=== PATIENT | female | born 1990 | race Native Hawaiian/Other Pacific Islander ===

== ENCOUNTER 2016-12-11 01:11 | Emergency (ER) | payer BC ==
[2016-12-11 01:45] VITALS: BP 108/75; PULSE 70; RESP 18; TEMP 98.2; O2SAT 100
[2016-12-11 02:00] LABS: RBC URINE 755 /hpf (0-3); URINE BILIRUBIN NEGATIVE (NEGATIVE); URINE BLOOD 3+ (NEGATIVE); URINE COLOR Yellow (YELLOW); URINE GLUCOSE (UA) NORMAL (Normal); URINE KETONE TRACE mg/dL (NEGATIVE); URINE LEUKOCYTE ESTERASE 1+ Leu/uL (Negative); URINE PROTEIN NEGATIVE (NEGATIVE); URINE UROBILINOGEN NORMAL mg/dL (0.2-1.0); WBC URINE 13 /hpf (0-5)
--- NOTE | 2016-12-11 02:04 | C.PDOC ---
History Of Present Illness 26 year old patient presents to the ED complaining of abdominal and back pain since 7:30 pm today. Patient states the pain is associated with her menstrual cycle that started 12/10/16. She typically gets cramps with her menses. She took an pain killer form [employer] with no relief. Patient states the pain is exacerbated by bowel movements. Patient currently denies fever, nausea, vomiting , dysuria, hematuria, incontinence, numbness or weakness. Time Seen by Provider: 12/11/16 01:37 Chief Complaint (Nursing): Abdominal Pain History Per: Patient History/Exam Limitations: no limitations Onset/Duration Of Symptoms: Hrs (7:30 pm today) Current Symptoms Are (Timing): Still Present Context: Other Severity: Severe Pain Scale Rating Of: 7 Location Of Pain/Discomfort: Diffuse Radiation Of Pain To:: Back Quality Of Discomfort: Cramping, "Pain" Associated Symptoms: Vomiting Exacerbating Factors: Other (bowel movement) Alleviating Factors: None Last Bowel Movement: Today Recent travel outside of the [place]: No Abnormal Vaginal Bleeding: No Last Menstral Period: started 12/10/16 Past Medical History Reviewed: Historical Data, Nursing Documentation, Vital Signs Vital Signs: Last Vital Signs Temp 98.2 F 12/11/16 01:39 Pulse 70 12/11/16 01:39 Resp 18 12/11/16 01:39 BP 108/75 12/11/16 01:39 Pulse Ox 100 12/11/16 02:20 - Medical History PMH: No Chronic Diseases Family History: States: Unknown Family Hx - Social History Hx Alcohol Use: No Hx Substance Use: No - Immunization History Hx Tetanus Toxoid Vaccination: No Hx Influenza Vaccination: No Hx Pneumococcal Vaccination: No Review Of Systems Except As Marked, All Systems Reviewed And Found Negative. Constitutional: Negative for: Fever Gastrointestinal: Positive for: Abdominal Pain. Negative for: Nausea, Vomiting Genitourinary: Negative for: Dysuria, Incontinence, Hematuria Musculoskeletal: Positive for: Back Pain Neurological: Negative for: Weakness, Numbness Physical Exam - Physical Exam Appears: Non-toxic, No Acute Distress Skin: Warm, Dry Head: Atraumatic, Normacephalic Eye(s): bilateral: Normal Inspection, EOMI Neck: Normal ROM, Supple Chest: Symmetrical Cardiovascular: Rhythm Regular Respiratory: Normal Breath Sounds, No Rales, No Rhonchi, No Wheezing Gastrointestinal/Abdominal: Bowel Sounds, Soft, No Tenderness, No Mass, No Distention, No Guarding, No Rebound Back: Normal Inspection, No CVA Tenderness Extremity: Normal ROM Neurological/Psych: Oriented x3, Normal Speech, Normal Cognition Gait: Steady ED Course And Treatment O2 Sat by Pulse Oximetry: 100 (room air) Pulse Ox Interpretation: Normal Medical Decision Making Medical Decision Making: Impression: 26 y/o female with abdominal cramping associated with menses Plan: * Tylenol * Urinalysis Progress: UA shows blood, no LE or nitrates Upon re-evaluation patient seated comfortable and reports pain is mostly improved. Abdomen is soft and nontender. Patient has no fever and stable for discharge. Disposition Counseled Patient/Family Regarding: Diagnosis, Need For Followup - Disposition [facility] Disposition: HOME/ ROUTINE Disposition Time: 02:19 Condition: STABLE Additional Instructions: Take Tylenol as needed for pain Instructions: Dysmenorrhea (ED) - POA Present On Arrival: None - Clinical Impression Clinical Impression: Dysmenorrhea - PA / MANAGER PEOPLE / Resident Statement MD/DO has reviewed & agrees with the documentation as recorded. - Scribe Statement The provider has reviewed the documentation as recorded by the Scribe Isamar Cobb All medical record entries made by the Scribe were at my direction and personally dictated by me. I have reviewed the chart and agree that the record accurately reflects my personal performance of the history, physical exam, medical decision making, and the department course for this patient. I have also personally directed, reviewed, and agree with the discharge instructions and disposition.
== END 2016-12-11 02:27 | disposition home or self-care (01) ==
LOC: C.ER 01:11
DX: N94.6 Dysmenorrhea, unspecified (principal)